=== PATIENT | female | born 1995 | race Caucasian/White ===

== ENCOUNTER 2023-12-10 09:29 | Day surgery (SDC) | payer OTHER ==
[~2023-12-10] VITALS: Ht 160 cm; Wt 59.6 kg
[~2023-12-10 09:29] MED LIST: BUSP1TAB PO
[2023-12-10] MEDS: NS 1,000 ML IV ONE (09:42)
[2023-12-10 12:35] VITALS: BP 124/72; TEMP 97.7; O2SAT 100
== END 2023-12-10 12:20 | disposition home or self-care (01) ==
LOC: M OPP 09:29
PROVIDERS: ATTEND Internal Medicine Gastroenterology
DX: K63.89 Other specified diseases of intestine (principal); K59.1 Functional diarrhea

== ENCOUNTER → 2023-12-28 | Outpatient (REF) | payer OTHER | LOC: M LAB REF 08:24 | PROVIDERS: ATTEND Physician Assistant Medical | DX: R19.7 Diarrhea, unspecified (principal) ==

== ENCOUNTER → 2024-06-05 | Outpatient (CLI) | payer OTHER ==
[~2024-06-05] MED LIST changes: +GASTROGRAFIN SOLUTION 30ML ONE; +ISOVUE-370 76% 100ML VIAL ONE
== END ==
LOC: M PLAIMG 11:49
PROVIDERS: ATTEND Physician Assistant Medical
DX: K86.81 Exocrine pancreatic insufficiency (principal); R19.7 Diarrhea, unspecified